=== PATIENT | male | born 1970 | race Caucasian/White ===

== ENCOUNTER 2018-09-05 08:10 | Emergency (ER) | payer BC ==
[~2018-09-05] VITALS: Ht 172.7 cm; Wt 65.0 kg
[2018-09-05] MEDS ORDERED: morphine 4 MG/ML VIAL IV STA (08:25)
[2018-09-05] MEDS ORDERED: PANTOPRAZOLE 40 MG INJ IV STA (08:25)
[2018-09-05] MEDS ORDERED: SOD CHLORIDE 0.9% 1,000 ML IV STA ×2 (08:25→10:53)
[2018-09-05] MEDS ORDERED: ONDANSETRON 4 MG INJ IV STA (08:25)
[2018-09-05] MEDS ORDERED: GLIM4TAB PO (08:47)
[2018-09-05] MEDS ORDERED: METO-335 PO (08:48)
[2018-09-05] MEDS ORDERED: RAMI1.2510 PO (08:48)
[2018-09-05] MEDS ORDERED: SITA1TAB5 PO (08:48)
[2018-09-05] MEDS ORDERED: INSULIN LISPRO 100 UNIT/ML VIAL SC ONE (10:00)
[2018-09-05 10:07] VITALS: Ht 172.7 cm; Wt 65.0 kg
[2018-09-05] MEDS ORDERED: ONDA4TAB14 PO (10:40)
[2018-09-05] MEDS ORDERED: PANT40TA3 PO (10:40)
--- NOTE | 2018-09-05 10:41 | ERD ---
ER Documentation Chief Complaint Chief Complaint BIBA FOR MID ABDOMINAL PAIN,VOMITING BLOOD ONSET TODAY HPI Patient is a 48-year-old male with diabetes who presents with vomiting and diarrhea. The patient was brought in by ambulance. He said that he had sudden onset of vomiting and diarrhea. He then had an episode of vomiting blood which she described as "dark blood". He said that he woke up with the symptoms. He has midepigastric pain. He denies the symptoms in the past. He has no sick contacts. He has never had endoscopy or colonoscopy. Upon review of old medical records the patient had one previous visit to the ER in 2013. He has a primary doctor but does not remember the name. ROS All systems reviewed and are negative except as per history of present illness. Medications Home Meds Active Scripts Ondansetron (Ondansetron Odt) 4 Mg Tab.rapdis, 4 MG PO Q6H PRN for NAUSEA AND/OR VOMITING, #30 TAB Prov:BENJIE BATISTA MD 09/05/18 Pantoprazole* (Protonix*) 40 Mg Tablet.dr, 40 MG PO DAILY, #20 TAB Prov:BENJIE BATISTA MD 09/05/18 Reported Medications Sitagliptin Phos/Metformin HCl (Janumet 50-1,000 mg Tablet) 1 Each Tablet, 1 TAB PO BID WITH MEALS, TAB 09/05/18 Metoprolol Succinate* (Toprol XL*) 25 Mg Tab.sr.24h, 25 MG PO DAILY, #30 TAB 09/05/18 Ramipril (Ramipril) 1.25 Mg Capsule, 1.25 MG PO DAILY, CAP 09/05/18 Glimepiride* (Glimepiride*) 4 Mg Tablet, 4 MG PO WITH BREAKFAST DINNE, TAB 09/05/18 Allergies Allergies: Coded Allergies: No Known Allergy (Unverified , 09/05/18) PMhx/Soc History of Surgery: No Anesthesia Reaction: No Hx Neurological Disorder: No Hx Respiratory Disorders: No Hx Cardiac Disorders: No Hx Psychiatric Problems: No Hx Miscellaneous Medical Probl: Yes (DM) Hx Alcohol Use: Yes Hx Substance Use: Yes (MARIJUANA) Hx Tobacco Use: No Smoking Status: Never smoker FmHx Family History: diabetes Physical Exam Vitals Vital Signs Date Temp Pulse Resp B/P (MAP) Pulse Ox O2 O2 Flow FiO2 Time Delivery Rate 09/05/18 105 18 122/64 98 Room Air 12:04 (83) 09/05/18 98.1 116 20 116/80 100 10:07 (92) Physical Exam Const: No acute distress Head: Atraumatic Eyes: Normal Conjunctiva ENT: Normal External Ears, Nose and Mouth. Neck: Full range of motion. No meningismus. Resp: Clear to auscultation bilaterally Cardio: Regular rate and rhythm, no murmurs Abd: Soft, non tender, non distended. Normal bowel sounds Skin: No petechiae or rashes Back: No midline or flank tenderness Ext: No cyanosis, or edema Neur: Awake and alert Psych: Normal Mood and Affect Result Diagram: 09/05/18 0836 09/05/18 0836 Results 24 hrs Laboratory Tests Test 09/05/18 08:36 09/05/18 09:54 09/05/18 10:57 09/05/18 11:51 White Blood Count 4.4 10^3/ul Red Blood Count 4.72 10^6/ul Hemoglobin 14.4 g/dl Hematocrit 42.8 % Mean Corpuscular 90.7 fl Volume Mean Corpuscular 30.5 pg Hemoglobin Mean Corpuscular 33.6 g/dl Hemoglobin Concent Red Cell 12.4 % Distribution Width Platelet Count 283 10^3/UL Mean Platelet 8.9 fl Volume Immature 0.200 % Granulocytes % Neutrophils % 64.1 % Lymphocytes % 25.6 % Monocytes % 9.7 % Eosinophils % 0.2 % Basophils % 0.2 % Nucleated Red Blood 0.0 /100WBC Cells % Immature 0.010 10^3/ul Granulocytes # Neutrophils # 2.8 10^3/ul Lymphocytes # 1.1 10^3/ul Monocytes # 0.4 10^3/ul Eosinophils # 0.0 10^3/ul Basophils # 0.0 10^3/ul Nucleated Red Blood 0.0 10^3/ul Cells # Prothrombin Time 11.2 Sec Prothrombin Time 0.9 Ratio INR International 0.80 Normalized Ratio Activated 24.1 Sec Partial Thromboplas t Time Sodium Level 136 mmol/L Potassium Level 4.3 mmol/L Chloride Level 104 mmol/L Carbon Dioxide 21 mmol/L Level Anion Gap 11 Blood Urea Nitrogen 21 mg/dl Creatinine 0.99 mg/dl Est Glomerular > 60 mL/min Filtrat Rate mL/min Glucose Level 441 mg/dl Calcium Level 9.3 mg/dl Total Bilirubin 0.1 mg/dl Direct Bilirubin 0.00 mg/dl Indirect Bilirubin 0.1 mg/dl Aspartate Amino 25 IU/L Transf (AST/SGOT) Alanine 17 IU/L Aminotransferase (A LT/SGPT) Alkaline 79 IU/L Phosphatase Troponin I 0.012 ng/ml Total Protein 7.2 g/dl Albumin 4.3 g/dl Globulin 2.90 g/dl Albumin/Globulin 1.48 Ratio Bedside Glucose 377 mg/dL 357 mg/dL 147 mg/dL Current Medications Medications Dose Sig/Yonny Start Time Status Last (Trade) Ordered Route PRN Stop Time Admin Dose Reason Admin Sodium 1,000 ml @ Q1H STAT 09/05/18 DC 09/05/18 Chloride 1,000 mls/hr IV 08:25 09:03 09/05/18 09:24 40 mg ONCE STAT 09/05/18 DC 09/05/18 Pantoprazole IV 08:25 09:00 (Protonix 09/05/18 08:26 Iv) Morphine 4 mg ONCE STAT 09/05/18 DC 09/05/18 Sulfate IV 08:25 09:00 (morphine) 09/05/18 08:26 Ondansetron 4 mg ONCE STAT 09/05/18 DC 09/05/18 HCl (Zofran IV 08:25 09:00 Inj) 09/05/18 08:26 Insulin 20 unit ONCE ONCE 09/05/18 DC 09/05/18 Human SC 10:00 10:04 Lispro 09/05/18 10:01 (Humalog) Sodium 1,000 ml @ Q1H STAT 09/05/18 DC 09/05/18 Chloride 1,000 mls/hr IV 10:53 11:04 09/05/18 11:52 Procedures/MDM EKG read by me: Rate/Rhythm: Regular rate and rhythm at a rate of 100 Intervals: Normal Impression: No evidence of ischemia or arrhythmia Patient is a 48-year-old male who presents with vomiting and diarrhea. The patient was found to have hypoglycemia but no signs of diabetic ketoacidosis. Hemoglobin was normal. Other laboratory studies were basically normal. The patient was given Zofran and fluids as well as Humalog. The patient feels better and I believe outpatient management is appropriate at this time. I do not think the patient requires admission to the hospital but I think close follow-up with his primary doctor within 24-48 hours for reevaluation would be appropriate. Patient can return for any worsening symptoms. I believe his bleeding is likely An-Kasper tear. I doubt esophageal varices. I believe the vomiting and diarrhea is likely viral in nature. Departure Diagnosis: Primary Impression: Vomiting Vomiting type: unspecified Vomiting Intractability: non-intractable Nausea presence: with nausea Qualified Codes: R11.2 - Nausea with vomiting, unspecified Additional Impressions: Hematemesis Nausea presence: with nausea Qualified Codes: K92.0 - Hematemesis Abdominal pain Abdominal location: generalized Qualified Codes: R10.84 - Generalized abdominal pain Condition: Fair Patient Instructions: Abdominal Pain, Vomiting (6Y-Adult) Referrals: Your doctor Additional Instructions: Call your primary care doctor TOMORROW for an appointment during the next 1-2 days.See the doctor sooner or return here if your condition worsens before your appointment time. BENJIE BATISTA MD Sep 05, 2018 10:41
[2018-09-05 12:04] VITALS: BP 122/64; PULSE 105; RESP 18
== END 2018-09-05 12:06 | disposition home or self-care (01) ==
LOC: E/R 08:10
DX: K92.0 Hematemesis (principal); R10.84 Generalized abdominal pain; E11.9 Type 2 diabetes mellitus without complications; Z79.84 Long term (current) use of oral hypoglycemic drugs
CPT/HCPCS: 36415; 80053; 82962; 84484; 85025; 85610; 85730; 86850; 86900; 86901; 93005; 96372; 96374; 96375; C9113; J1815; J2270; J2405; J7030; Z7502

== ENCOUNTER 2018-10-06 06:08 | Emergency (ER) | payer BC ==
[~2018-10-06] VITALS: Ht 171.4 cm; Wt 56.8 kg
[~2018-10-06 06:08] MED LIST: GLIM4TAB PO; METO-335 PO; ONDA4TAB14 PO; PANT40TA3 PO; RAMI1.2510 PO; SITA1TAB5 PO
[2018-10-06 06:10] VITALS: Ht 171.4 cm; Wt 56.8 kg
[2018-10-06] MEDS ORDERED: ONDANSETRON 4 MG INJ IV STA (06:19)
[2018-10-06] MEDS ORDERED: SOD CHLORIDE 0.9% 1,000 ML IV STA (06:19)
[2018-10-06] MEDS ORDERED: morphine 4 MG/ML VIAL IV STA (06:19)
[2018-10-06] MEDS ORDERED: FAMOTIDINE 20 MG INJ IV STA (06:19)
[2018-10-06] MEDS ORDERED: PANTOPRAZOLE IV 80 MG in SOD CHLORIDE 0.9% 100 ML IVPB STA (07:00)
--- NOTE | 2018-10-06 07:58 | NUR ---
Procedure Ordered: CT ABD/PELV WITH IV CON Reason for Exam Today: ABD PAIN Previous Exams: Allergies: NKA Current Medications Taken: Glucophage ( ) Metformin ( ) Previous reaction to contrast media: Yes ( ) No ( ) : Yes ( ) No ( X) Asthma: Yes ( ) No ( X) Diabetes: Yes ( ) No ( X) Myeloma: Yes ( ) No ( X) Heart Disease: Yes ( ) No (X ) Cardiac Disease: Yes ( ) No ( X) Kidney Disease: Yes ( ) No (X ) Vascular Disease: Yes ( ) No ( X) Patient Teaching done: Yes ( ) No ( ) Ore Digger Used: Yes ( ) No ( ) Name of Ore Digger: Language Used: As part of the test requested by your doctor, contrast media may be injected into your vein while the x-rays are being taken. Occasionally, reactions from IV contrast may occur. The physician and staff of this hospital are trained to treat these reactions. Select the type of Contrast that will be given to patient: Isovue 300 ( ) Isovue 370 ( ) Visipaque ( ) Cystografin ( ) Gastrographin ( ) Redi-cat ( ) Volumen ( ) Amount of contrast to be given: [id number]: 90CC IV IV ( ) PO ( ) Date given: 10.06.18 Lab Values: BUN: 21 Creatinine: 1.18 Reason why contrast cannot be given: Location of patient pre-procedure: ED Location of patient post procedure: ED
[2018-10-06] MEDS ORDERED: [UNRECOGNIZED DRUG - CODE] PO (08:00)
[2018-10-06] MEDS ORDERED: OMEP40CA6 PO (08:00)
[2018-10-06] MEDS ORDERED: SOD CHLORIDE 0.9% 100 ML ONE (08:01)
[2018-10-06] MEDS ORDERED: IOHEXOL 300MG/ML 150 ML BTL ONE (08:01)
--- NOTE | 2018-10-06 08:11 | ERD ---
ER Documentation Chief Complaint Chief Complaint DAYA LAGUNAS,from home,vomiting & diarrhea,abd pain since 0200 HPI This is a very pleasant 48-year-old male with a past medical history of [id number] diabetes mellitus. The patient presents to the emergency department today as he states he awoke at 2 AM this morning with severe abdominal pain and cramping. This was 4 hours prior to arrival. Indicates that since that time he has had multiple episodes of nonbloody nonbilious emesis and loose watery stools. He states he ate dinner at 9 PM, roughly 5 hours prior to the onset of his symptoms. He states he said no fevers or shaking or chills. He has no shortness of breath at rest or exertion. He denies any chest pain or pressure. He indicates he did have a similar episode 2 weeks prior to arrival however at that time had an episode of hematemesis. He was seen and evaluated in the emergency department. He has no history of alcohol abuse or pancreatitis. He states the epigastric pain is a sharp shooting pain that does radiate to the left and right lower quadrant. He denies any back pain. He is complaining of diffuse abdominal cramping that is worse just prior to stooling. ROS All systems reviewed and are negative except as per history of present illness. Medications Home Meds Reported Medications Omeprazole* (Omeprazole*) 40 Mg Capsule.dr, 40 MG PO AC BREAKFAST, #30 CAP 10/06/18 Ramipril (Altace) 1.25 Mg Capsule, 1.25 MG PO DAILY, CAP 10/06/18 Sitagliptin Phos/Metformin HCl (Janumet 50-1,000 mg Tablet) 1 Each Tablet, 1 TAB PO BID WITH MEALS, TAB 09/05/18 Metoprolol Succinate* (Toprol XL*) 25 Mg Tab.sr.24h, 25 MG PO DAILY, #30 TAB 09/05/18 Glimepiride* (Glimepiride*) 4 Mg Tablet, 4 MG PO WITH BREAKFAST DINNE, TAB 09/05/18 Discontinued Reported Medications Ramipril (Ramipril) 1.25 Mg Capsule, 1.25 MG PO DAILY, CAP 09/05/18 Discontinued Scripts Ondansetron (Ondansetron Odt) 4 Mg Tab.rapdis, 4 MG PO Q6H PRN for NAUSEA AND/OR VOMITING, #30 TAB Prov:BENJIE BATISTA MD 09/05/18 Pantoprazole* (Protonix*) 40 Mg Tablet.dr, 40 MG PO DAILY, #20 TAB Prov:BENJIE BATISTA MD 09/05/18 Allergies Allergies: Coded Allergies: No Known Allergy (Unverified , 10/06/18) PMhx/Soc History of Surgery: No Anesthesia Reaction: No Hx Neurological Disorder: No Hx Respiratory Disorders: No Hx Cardiac Disorders: No Hx Psychiatric Problems: No Hx Miscellaneous Medical Probl: No Hx Alcohol Use: No Hx Substance Use: No Hx Tobacco Use: No Smoking Status: Never smoker Physical Exam Vitals Vital Signs Date Temp Pulse Resp B/P (MAP) Pulse Ox O2 O2 Flow FiO2 Time Delivery Rate 10/06/18 98.1 128 18 104/58 97 06:10 (73) Physical Exam Constitutional:Well-developed. Well-nourished. HEENT:Normocephalic. Atraumatic.Pupils were equal round reactive to light. Very Dry mucous membranes.No tonsillar exudates. Neck: No nuchal rigidity. No lymphadenopathy. No posterior cervical spine tenderness or step-offs. Respiratory: Not using accessory muscles of respiration.Lungs were clear to auscultation bilaterally. No rhonchi. No rales. No wheezing. Cardiovascular: Regular rate regular rhythm.No murmurs. No rubs were appreciated.S1, S2 normal. Distal pulses are palpable 2+ bilaterally. GI: Abdomen was soft. Epigastric tenderness. Mild tenderness in the left lower quadrant. No tenderness the right lower quadrant over McBurney's point. Psoas sign negative obturator sign negative. Non Distended. No pulsatile abdominal masses or bruits. No rebound. No guarding. Bowel sounds were present and normal. Muscle skeletal: Full range of motion of both the upper and lower extremities bilaterally.Normal muscle tone.No assymetrical calf tenderness or swelling. Skin: No petechia, no purpura. No lesions on the palms or the soles of the feet. No maculopapular rash. NEURO: Patient was alert, awake, orientated x3.No facial droop. Gait observed and normal with no ataxia.Speech had regular rate and rhythm. No focal neurological deficits. Result Diagram: 10/06/18 0653 10/06/18 0655 Results 24 hrs Laboratory Tests Test 10/06/18 06:53 10/06/18 06:54 10/06/18 06:55 White Blood Count 13.0 10^3/ul Red Blood Count 5.26 10^6/ul Hemoglobin 16.3 g/dl Hematocrit 49.6 % Mean Corpuscular Volume 94.3 fl Mean Corpuscular Hemoglobin 31.0 pg Mean Corpuscular 32.9 g/dl Hemoglobin Concent Red Cell Distribution Width 13.8 % Platelet Count 293 10^3/UL Mean Platelet Volume 8.9 fl Immature Granulocytes % 0.500 % Neutrophils % 89.9 % Lymphocytes % 5.7 % Monocytes % 3.5 % Eosinophils % 0.2 % Basophils % 0.2 % Nucleated Red Blood Cells % 0.0 /100WBC Immature Granulocytes # 0.060 10^3/ul Neutrophils # 11.7 10^3/ul Lymphocytes # 0.7 10^3/ul Monocytes # 0.5 10^3/ul Eosinophils # 0.0 10^3/ul Basophils # 0.0 10^3/ul Nucleated Red Blood Cells # 0.0 10^3/ul POC Venous Lactate 1.8 mmol/L Prothrombin Time 10.9 Sec Prothrombin Time Ratio 0.9 INR International 0.77 Normalized Ratio Activated Partial Thromboplast 22.4 Sec Time Sodium Level 141 mmol/L Potassium Level 4.5 mmol/L Chloride Level 100 mmol/L Carbon Dioxide Level 21 mmol/L Anion Gap 20 Blood Urea Nitrogen 25 mg/dl Creatinine 1.18 mg/dl Est Glomerular Filtrat > 60 mL/min Rate mL/min Glucose Level 267 mg/dl Calcium Level 10.1 mg/dl Total Bilirubin 0.5 mg/dl Direct Bilirubin 0.00 mg/dl Indirect Bilirubin 0.5 mg/dl Aspartate Amino Transf (AST/SGOT) 23 IU/L Alanine 15 IU/L Aminotransferase (ALT/SGPT) Alkaline Phosphatase 75 IU/L Troponin I < 0.012 ng/ml Total Protein 8.9 g/dl Albumin 5.1 g/dl Globulin 3.80 g/dl Albumin/Globulin Ratio 1.34 Amylase Level 123 U/L Lipase 166 U/L Ethyl Alcohol Level < 10.0 mg/dl Current Medications Medications Dose Sig/Yonny Start Time Status Last (Trade) Ordered Route PRN Stop Time Admin Dose Reason Admin Sodium 1,000 ml @ Q1H STAT 10/06/18 DC 10/06/18 Chloride 1,000 mls/hr IV 06:19 07:09 10/06/18 07:18 Morphine 4 mg ONCE STAT 10/06/18 DC 10/06/18 Sulfate IV 06:19 07:09 (morphine) 10/06/18 06:21 Ondansetron 4 mg ONCE STAT 10/06/18 DC 10/06/18 HCl (Zofran IV 06:19 07:09 Inj) 10/06/18 06:21 Famotidine 20 mg ONCE STAT 10/06/18 DC 10/06/18 (Pepcid Iv) IV 06:19 07:09 10/06/18 06:21 Pantoprazole 100 ml @ ONCE STAT 10/06/18 DC 80 mg/Sodium 400 mls/hr IVPB 07:00 Chloride 10/06/18 07:14 IV Flush 10 ml STK-MED 10/06/18 DC 10/06/18 (NS 10 ml) ONCE .ROUTE 08:01 08:30 10/06/18 08:02 Sodium 100 ml @ ud STK-MED 10/06/18 DC 10/06/18 Chloride ONCE .ROUTE 08:01 08:30 10/06/18 08:02 Iohexol 150 ml STK-MED 10/06/18 DC 10/06/18 (Omnipaque ONCE .ROUTE 08:01 08:30 300mg/ ml) 10/06/18 08:02 Procedures/MDM This patient presented to the emergency department with abdominal pain and was seen and evaluated by myself. My differential diagnosis included but was not limited to abdominal aortic aneurysm, appendicitis, pancreatitis, perforated peptic ulcer, perforated viscus, Boerhaaves syndrome or visceral pain such as diverticulitis, DKA, esophagitis, hepatitis or bowel obstruction. The patient was placed on a panel monitor, continuous pulse oximetry, and IV access was established by nursing staff. The patient also showed signs of clinical dehydration thought to be secondary to both vomiting and diarrhea. The patient's lactic acid was within normal limits. The patient was given IV fluids. He was also given intravenous morphine and Zofran for analgesic control Pepcid as well as Protonix. The reason for getting Protonix is upon reviewing the patient's previous medical records he did have a history of hematemesis 2 weeks prior to arrival but there is no evidence of an upper or lower gastrointestinal bleed at this time. This was given prophylactically. 12 Lead EKG tracing ordered and reviewed by myself showed: Sinus tachycardia 111 bpm and no arrhythmia. MO interval normal. QRS duration normal. ST segment elevation of less than 1 mm in inferior leads II, III and aVF with no reciprocal changes No ST segment depression. No changes consistent with acute ischemia. This EKG was taken at 719 . the EKG was read as ST segment elevation however my clinical suspicion was low for us to make. The patient had no chest pain, had no diaphoresis was hemodynamically stable and there is no reciprocal changes on the EKG. I also spoke with the baggageman Dr. Conner who also agreed that this did not appear to be result of a STEMI and the patient's troponin was within normal limits. The patient was hyperglycemic without ketosis. This was treated with IV fluids. Due to the patient's abdominal physical exam findings and recurrence of these episodes within the past 2 weeks I did feel is necessary at this time to obtain a CT scan of the abdomen with IV contrast. This was reviewed by the radiologist and indicated the followin. Prominent nondilated fluid filled loops of distal ileum with mild wall thickening especially the terminal ileum with the remainder the small bowel unremarkable. Findings may represent enteritis. Recommend consideration of Crohn disease. 2. Nonvisualization the appendix. No evidence of appendicitis. No evidence of diverticulitis. 3. In the superior pole right kidney is a 3.8 cm lobular bilobed cystic mass with Hounsfield units not consistent with a simple cyst. Findings may represent proteinaceous cyst. Follow-up is suggested. No urinary calcified calculi , obstructive uropathy or other intra renal masses. 4. Hepatomegaly with hepatic fatty infiltration. The patient had significant improvement of his symptoms. The patient stated he felt comfortable being discharged home he is now able to tolerate oral intake. I indicated to the patient this could be a viral etiology but he would benefit from an outpatient colonoscopy as a could not rule out other etiology such as Crohn's disease. The patient was discharged home in fair condition. They were instructed to return to the emergency department at any time if there was any worsening of their condition. The patient stated they would follow up with their PCP in the next 24-48 hours to initiate a suitable medication regimen under the care of their PCP as well as to allow their PCP to monitor any drug reactions. The patient was discharged home with prescriptions after they gave informed consent to the new medication. They were also fully informed by myself on the adverse effects and adverse drug interactions in order to provide adequate safeguards to prevent possible adverse reactions to medications. Departure Diagnosis: Primary Impression: Epigastric pain Additional Impressions: Vomiting and diarrhea Hyperglycemia without ketosis Enteritis Condition: JO Brooks MD Oct 06, 2018 08:11
[2018-10-06] MEDS ORDERED: ONDA4TAB14 PO (09:15)
[2018-10-06] MEDS ORDERED: DICYCLOMINE 10 MG CAP PO ONE (09:30)
[2018-10-06 09:54] VITALS: BP 120/78; PULSE 109; RESP 20
== END 2018-10-06 09:55 | disposition home or self-care (01) ==
LOC: E/R 06:08
DX: E11.65 Type 2 diabetes mellitus with hyperglycemia (principal); K52.9 Noninfective gastroenteritis and colitis, unspecified; Z79.84 Long term (current) use of oral hypoglycemic drugs
CPT/HCPCS: 71045; 74177; 80053; 80307; 81001; 82150; 83605; 83690; 84484; 85025; 85610; 85730; 93005; 96361; 96374; 96375; C9113; J2270; J2405; J7030; Q9967; Z7502; Z7610

== ENCOUNTER 2018-12-02 20:03 | Emergency (ER) | payer BC ==
[~2018-12-02] VITALS: Wt 60.0 kg
[~2018-12-02 20:03] MED LIST changes: +OMEP40CA6 PO; -PANT40TA3 PO; -RAMI1.2510 PO; +[UNRECOGNIZED DRUG - CODE] PO
[2018-12-02 20:05] VITALS: BP 115/81; PULSE 130; RESP 19
[2018-12-02] MEDS ORDERED: ONDANSETRON 4 MG INJ IV STA (20:26)
[2018-12-02] MEDS ORDERED: SOD CHLORIDE 0.9% 1,000 ML IV ONE ×2 (20:30→22:00)
[2018-12-02] MEDS ORDERED: DICYCLOMINE 20 MG INJ IM ONE (20:30)
[2018-12-02] MEDS ORDERED: FAMOTIDINE 20 MG INJ IV ONE (22:00)
--- NOTE | 2018-12-02 22:01 | ERD ---
ER Documentation Chief Complaint Chief Complaint bib ra 90 from home for sudden onset, n/v/d x 1 day HPI This is a 48-year-old male with a past medical history of hypertension, diabetes who is presenting with several hours of moderate waxing and waning cramping colicky general abdominal pain, nausea with a few episodes of nonbilious nonbloody vomiting and loose watery brown nonbloody diarrhea. This began after taking a nap this afternoon. The patient feels dehydrated. He also endorses urinary frequency. The patient endorses eating chicken wings from home for lunch prior to starting his nap. The patient also ate a chicken Caesar salad from a cafeteria this morning. The patient does also endorse an episode of syncope. During an episode of vomiting, the patient felt very lightheaded. He fell forward and sustained a excoriation to the right eyelid. The patient also reportedly bit his tongue and has an abrasion to the tongue. The patient denies feeling sick recently. The patient denies fever or chills. The patient has had no headache or vision changes. The patient does not endorse neck or back pain. The patient denies dizziness. The patient has had no chest pain or trouble breathing. The patient has had no focal deficits. The patient has had no weakness or numbness or tingling to the face or extremities. ROS All systems reviewed and are negative except as per history of present illness. Medications Home Meds Active Scripts Ondansetron Hcl* (Zofran*) 8 Mg Tablet, 8 MG PO Q6H PRN for NAUSEA AND OR VOMITING, #20 TAB Prov:JUSTYNA AMAYA MD 12/02/18 Omeprazole* (Omeprazole*) 40 Mg Capsule.dr, 40 MG PO DAILY, #14 CAP Prov:JUSTYNA AMAYA MD 12/02/18 Famotidine* (Pepcid*) 20 Mg Tablet, 20 MG PO BID for 14 Days, TAB Prov:JUSTYNA AMAYA MD 12/02/18 Ondansetron (Ondansetron Odt) 4 Mg Tab.rapdis, 4 MG PO Q6H PRN for NAUSEA AND/OR VOMITING, #20 TAB Prov:JO PEREZ MD 10/06/18 Reported Medications Omeprazole* (Omeprazole*) 40 Mg Capsule.dr, 40 MG PO AC BREAKFAST, #30 CAP 10/06/18 Ramipril (Altace) 1.25 Mg Capsule, 1.25 MG PO DAILY, CAP 10/06/18 Sitagliptin Phos/Metformin HCl (Janumet 50-1,000 mg Tablet) 1 Each Tablet, 1 TAB PO BID WITH MEALS, TAB 09/05/18 Metoprolol Succinate* (Toprol XL*) 25 Mg Tab.sr.24h, 25 MG PO DAILY, #30 TAB 09/05/18 Glimepiride* (Glimepiride*) 4 Mg Tablet, 4 MG PO WITH BREAKFAST DINNE, TAB 09/05/18 Allergies Allergies: Coded Allergies: No Known Allergy (Unverified , 10/06/18) PMhx/Soc History of Surgery: No Anesthesia Reaction: No Hx Neurological Disorder: No Hx Respiratory Disorders: No Hx Cardiac Disorders: Yes (Diabetes, hypertension) Hx Psychiatric Problems: No Hx Miscellaneous Medical Probl: Yes ( GERD) Hx Alcohol Use: No Hx Substance Use: No Hx Tobacco Use: No Smoking Status: Never smoker FmHx Family History: diabetes Physical Exam Vitals Vital Signs Date Temp Pulse Resp B/P (MAP) Pulse Ox O2 O2 Flow FiO2 Time Delivery Rate 12/02/18 98.7 116 19 119/91 100 Room Air 20:14 (100) 12/02/18 98.7 130 19 115/81 100 20:05 (92) Physical Exam Const: No apparent distress, well-developed, thin appearing Head: Normocephalic. Less than 1 cm excoriation to the lateral aspect of the right eyebrow. Eyes: Normal Conjunctiva. Extraocular movements intact. Pupils equal, round and reactive to light ENT: Normal External Ears, Nose. Minor abrasion to the right side of the tongue. Neck: Full range of motion. No meningismus. Resp: Clear to auscultation bilaterally, No wheezes, rales or rhonchi Cardio: Regular rhythm. Tachycardia. No murmurs, rubs or gallops Abd: Soft, non tender, non distended. Normal bowel sounds. No palpable or pulsatile abdominal masses. Skin: No petechiae or rashes Back: No midline tenderness. No CVA tenderness Ext: No cyanosis, or edema Neur: Awake and alert, oriented 4. Cranial nerves intact. No facial droop. Normal strength, sensation and coordination. Psych: Normal Mood and Affect Result Diagram: 12/02/18202412/02/182024 Results 24 hrs Laboratory Tests Test 12/02/18 20:16 12/02/18 20:25 12/02/18 22:16 Bedside Glucose 269 mg/dL White Blood Count 7.0 10^3/ul Red Blood Count 5.01 10^6/ul Hemoglobin 15.5 g/dl Hematocrit 45.2 % Mean Corpuscular Volume 90.2 fl Mean Corpuscular Hemoglobin 30.9 pg Mean Corpuscular 34.3 g/dl Hemoglobin Concent Red Cell Distribution Width 13.2 % Platelet Count 270 10^3/UL Mean Platelet Volume 9.1 fl Immature Granulocytes % 0.300 % Neutrophils % 61.5 % Lymphocytes % 28.0 % Monocytes % 10.0 % Eosinophils % 0.1 % Basophils % 0.1 % Nucleated Red Blood Cells % 0.0 /100WBC Immature Granulocytes # 0.020 10^3/ul Neutrophils # 4.3 10^3/ul Lymphocytes # 2.0 10^3/ul Monocytes # 0.7 10^3/ul Eosinophils # 0.0 10^3/ul Basophils # 0.0 10^3/ul Nucleated Red Blood Cells # 0.0 10^3/ul Sodium Level 137 mmol/L Potassium Level 3.7 mmol/L Chloride Level 100 mmol/L Carbon Dioxide Level 23 mmol/L Anion Gap 14 Blood Urea Nitrogen 28 mg/dl Creatinine 1.12 mg/dl Est Glomerular Filtrat Rate mL/min > 60 mL/min Glucose Level 262 mg/dl Calcium Level 10.1 mg/dl Total Bilirubin 0.6 mg/dl Direct Bilirubin 0.00 mg/dl Indirect Bilirubin 0.6 mg/dl Aspartate Amino Transf (AST/SGOT) 22 IU/L Alanine 24 IU/L Aminotransferase (ALT/SGPT) Alkaline Phosphatase 68 IU/L Troponin I < 0.012 ng/ml Total Protein 8.0 g/dl Albumin 4.7 g/dl Globulin 3.30 g/dl Albumin/Globulin Ratio 1.42 Lipase 186 U/L Bedside Urine pH (LAB) 5.0 Bedside Urine Protein (LAB) Negative Bedside Urine Glucose (UA) 0.50% Bedside Urine Ketones (LAB) 2+ Bedside Urine Blood Negative Bedside Urine Nitrite (LAB) Negative Bedside Urine Leukocyte Esterase Negative (L Current Medications Medications Dose Sig/Yonny Start Time Status Last (Trade) Ordered Route PRN Stop Time Admin Dose Reason Admin Sodium 1,000 ml @ Q1H ONCE 12/02/18 DC 12/02/18 Chloride 1,000 mls/hr IV 20:30 20:33 12/02/18 21:29 Ondansetron 4 mg ONCE STAT 12/02/18 DC 12/02/18 HCl (Zofran IV 20:26 20:31 Inj) 12/02/18 20:28 Dicyclomine 10 mg ONCE ONCE 12/02/18 DC 12/02/18 HCl IM 20:30 20:42 (Bentyl) 12/02/18 20:31 Sodium 1,000 ml @ Q1H ONCE 12/02/18 12/02/18 Chloride 1,000 mls/hr IV 22:00 22:22 12/02/18 22:59 Famotidine 20 mg ONCE ONCE 12/02/18 DC 12/02/18 (Pepcid Iv) IV 22:00 22:22 12/02/18 22:01 Procedures/MDM MDM The patient's presentation warrants further investigation. Previous medical records, if available, were reviewed. LABS The patient's laboratory testing was obtained and reviewed. No emergent treatment was required unless described below. CBC: No E/o systemic infection or severe anemia or thrombocytopenia Chemistry: No E/o severe acidosis or alkalosis or renal failure or liver di sease. Hyperglycemia without diabetic ketoacidosis. Elevated BUN, concerning for dehydration. Lipase: No E/o pancreatitis Troponin: No E/o acute ischemia Urine: No E/o acute infection or hematuria EKG EKG read by me: Rate/Rhythm: Sinus tachycardia at 115 bpm Intervals: Normal Bowlus: Normal Impression: Sinus tachycardia. Nonspecific repolarization changes without evidence of acute ischemia. TREATMENT/DISPOSITION The patient presents with a transient now resolving episode of abdominal pain, nausea, vomiting and diarrhea. Food poisoning and gastroenteritis are certainly possibilities, but this is a diagnosis of exclusion. The patient has had episodes similar to this in the past. The patient had a CT scan performed in September that revealed enteritis. The radiologist reported consideration for irritable bowel disease. Given the patient's unremarkable workup and now completely benign abdominal exam, I do not feel the patient requires a repeat CT scan. However, I did recommend that the patient follow-up with a donor services coordinator. The patient does not have any specific abdominal pain. That said, he does report previous improvement with Prilosec. The patient was given a dose of Pepcid in the emergency department. The patient was given Zofran for nausea. The patient was also treated with IV fluids, as there is evidence for dehydration. The patient does have a history of diabetes, and his blood sugar is elevated today. However, I do not suspect a DKA. The patient does endorse occasional marijuana use. He has not used in several days, so I have decreased suspicion for cyclic vomiting syndrome. However, this is a possibility, and I did recommend that he cease using the drug. The patient does not have any evidence of peritonitis. I do not suspect viscus perforation. The patient does not have clinical symptoms concerning for mesenteric ischemia or ischemic colitis. The patient does not have right upper quadrant tenderness, and I have low suspicion for gallstones, cholecystitis or biliary colic. The patient does not have left upper quadrant tenderness. I have low suspicion for pancreatitis. The patient does not have any right lower quadrant tenderness, or periumbilical tenderness. I have low suspicion for appendicitis. The patient does not have suprapubic tenderness. I have decreased suspicion for cystitis. The patient does not have any left lower quadrant tenderness, and I have low suspicion for diverticulosis or diverticulitis. The patient does not have any flank tenderness. The patient does not have gross hematuria. I have decreased suspicion for nephrolithiasis or renal colic. The patient does not have any palpable pulsatile mass or severe abdominal pain radiating to the back. I have low suspicion for aortic aneurysm, dissection or rupture. The patient does endorse having a syncopal episode while vomiting. I do have high suspicion for a vasovagal event. The patient presents after a syncopal event. The patient has a reassuring physical exam. The patient is not clinically orthostatic. The patient is not dizzy. I have decreased suspicion for vertigo. The patient has no signs of emergent or symptomatic anemia. The patient does not have any emergent electrolyte or metabolic emergencies. I have decrease suspicion for a thyroid disorder. The patient is not toxic appearing. I have decreased suspicion for an infectious etiology of symptoms. The patient's EKG and troponin are reassuring. I have low suspicion for acute coronary syndrome. I do not see evidence of any emergent cardiac arrhythmia, which includes but is not limited to heart block, Brugada syndrome or WPW. The patient was tachycardic in the emergency department. The patient's last several emergency department visits revealed tachycardia. The patient's EKG is unchanged. The patient's troponin is negative. I do not suspect acute coronary syndrome. I do suspect that the patient's symptoms are related to his nausea, vomiting, diarrhea and dehydration. The patient has no heart murmurs or rales. There is no evidence of cardiomegaly on exam. I have low suspicion for hypertrophic cardiomyopathy. I do not see evidence of CHF. The patient does not endorse any chest or pleuritic pain. The history is negative for bleeding or clotting disorders. The patient has not been involved in any recent prolonged trips or surgeries or hospitalizations. The patient has no calf tenderness or swelling. I have decreased suspicion for PE as the etiology of symptoms. The patient has no focal deficits. The neurologic exam is reassuring. I have decreased suspicion for cerebral ischemia. There was no trauma or injury. There is no personal or family history of cerebral aneurysm. I have decreased suspicion for SAH or other ICH. I have low suspicion for temporal arteritis, cavernous venous thrombosis, subdural hematoma, epidural hematoma, meningitis. The [place] Syncope Rule was applied and the patient was found to be low risk for a serious outcome. DISCHARGE Upon reevaluation of the patient, symptoms have improved. No emergent diagnoses were identified. At this time, I feel that the patient stable for discharge. The patient was instructed to follow-up with a primary care physician in 1-3 days. The patient will be given strict precautions with which to return to the emergency department. Prescriptions: Rubi Pierre Disclaimer: Inadvertent spelling and grammatical errors are likely due to EHR/dictation software use and do not reflect on the overall quality of patient care. Note that the electronic time recorded on this note does not necessarily reflect the actual time of the patient encounter. Departure Diagnosis: Primary Impression: Abdominal pain Abdominal location: generalized Qualified Codes: R10.84 - Generalized a bdominal pain Additional Impressions: Nausea and vomiting Vomiting type: unspecified Vomiting Intractability: non-intractable Qualified Codes: R11.2 - Nausea with vomiting, unspecified Diarrhea Diarrhea type: unspecified type Qualified Codes: R19.7 - Diarrhea, unspecified Hyperglycemia Elevated BUN Dehydration Condition: Stable Patient Instructions: Abdominal Pain, Nausea and Vomiting-Adult Additional Instructions: Please follow-up with your primary care doctor who can help coordinate care with a donor services coordinator in an outpatient setting. Thank you for for coming to [facility] for your care today. Please ask your nurse or provider if you have questions about your care today and do not leave until all your questions have been answered. Please use any medications given as directed and follow-up with your doctor (or the doctor you were referred to) in the next 1-3 days. If you do not have a primary care doctor you may follow up at the [facility] or [facility] (listed below). You may also use motrin and tylenol as needed for fever and/or pain unless instructed otherwise by your provider or nurse. Indications for more urgent follow-up have been discussed, but you may return to the Emergency Department at ANY time for any worrisome or worsening symptoms. If you have abdominal pain, please know that no test or exam you received is perfect and you should follow up within 8 hours for continued pain. If you had any imaging studies today, such as an X-Ray or CT Scan, these studies will be reviewed later by a radiologist. You will be called if there are important findings that were not identified today, so make sure the contact information you provided at registration is correct. If you received any narcotic pain control medicine today, such as Vicodin, Morphine or Dilaudid, your coordination and judgment may be affected for a numbe r of hours. Please do not drive or operate heavy machinery, and you may want someone to assist you at home. If you were given a prescription for narcotic medication, be aware that it is very addictive- use sparingly and only if necessary. PLEASE SEEK FURTHER EVALUATION AND MANAGEMENT AT YOUR DOCTORS OFFICE WITHIN THE NEXT 1-3 DAYS. IT IS YOUR RESPONSIBILITY TO MAKE AN APPOINTMENT FOR FOLOW-UP CAR E. IF YOU HAVE A PRIMARY DOCTOR, PLEASE CALL THEIR OFFICE TO SCHEDULE AN APPOINTMENT FOR FOLLOW UP. IF YOU DO NOT HAVE A PRIMARY DOCTOR YOU CAN CALL OUR PHYSICIAN REFERRAL HOTLINE AT IF YOU CAN NOT AFFORD TO SEE A PHYSICIAN YOU CAN CHOSE FROM THE FOLLOWING [facility]: [facility] [address] [facility]. [facility] [address] [email or web address] [address] [facility] [address] [facility] [address] [facility] [facility]. [address] JUSTYNA CONTRERAS MD Dec 02, 2018 21:58
[2018-12-02] MEDS ORDERED: FAMO-96 PO (22:23)
[2018-12-02] MEDS ORDERED: OMEP40CA6 PO (22:23)
[2018-12-02] MEDS ORDERED: ONDA8TAB9 PO (22:23)
== END 2018-12-02 22:54 | disposition home or self-care (01) ==
LOC: E/R 20:03
DX: R10.84 Generalized abdominal pain (principal); R11.0 Nausea; E11.65 Type 2 diabetes mellitus with hyperglycemia; R79.89 Other specified abnormal findings of blood chemistry; E86.0 Dehydration; I10 Essential (primary) hypertension; Z79.84 Long term (current) use of oral hypoglycemic drugs
CPT/HCPCS: 36415; 80053; 81003; 82962; 83690; 84484; 85025; 93005; 96372; 96374; 96375; J0500; J2405; J7030; Z7502; Z7610